=== PATIENT | female | born 1985 ===

== ENCOUNTER 2023-01-13 11:15 | Day surgery (SDC) | payer OTHER, SELFPAY ==
[2023-01-06 12:43] VITALS: BMI 28.0
[2023-01-13] VITALS (13 sets, daily range): BP systolic 93–111; BP diastolic 54–77; PULSE 63–115; RESP 11–18; TEMP 36.2–37.6; O2SAT 93–99; BMI 28.0; BMI 29.6
--- NOTE | 2023-01-13 | PATH_ITS ---
[facility] Accession Number: [id number] No. of containers..01 Tissue . 01 Material submitted: . uterus - UTERUS,BILATERAL FALLOPIAN TUBES . 01 Diagnosis: Uterus, Cervix, Left and Right Fallopian Tubes, Hysterectomy and Bilateral Salpingectomy: Cervix: No significant pathologic abnormalities. Endometrium: Disordered proliferative. Myometrium: Adenomyosis. Fallopian tubes: Benign paratubal cyst. [facility] 01/24/2023 2217 Local . 01 Electronically signed: . Telma Wright MD, Pathologist NPI- [id number] . 01 Gross description: . The specimen is received in formalin labeled with the patient's name, , and uterus, bilateral fallopian tubes consist of a uterus with attached cervix and detached bilateral fallopian tubes. The 116-gram uterus with attached cervix measures 9.3 cm from fundus to ectocervix, 6.8 cm from cornu to cornu, and 3.9 cm from anterior to posterior. The serosal surface is pink to violaceous, smooth, and unremarkable. The pale pink, smooth and centrally granular ectocervix measures 3.6 x 3.5 cm with a central slit-like os measuring 1.3 cm in length . The uterus is bivalved to reveal an endocervical canal with a herringbone pattern measuring 4.7 cm in length and 0.8 cm in diameter. The red-ortiz lush triangular endometrial cavity measures 3.0 cm in length and 2.0 cm from cornu to cornu. The uterus is serially sectioned to reveal a red-ortiz thickened endometrium measuring 0.2 cm and a pale pink trabecular myometrium measuring up to 2.2 cm in thickness. Definitive polyps or lesions are not seen. No leiomyomatous nodules are identified. The first violaceous fimbriated fallopian tube measures 3.5 cm in length and 0.9 cm in diameter. No paratubal cysts are seen. The second, previously disrupted, violaceous fimbriated tube upon reapproximation measures 3.9 cm in length and 0.7 cm in diameter. No paratubal cysts are seen. Air Motor Repairer sections are submitted as follows: A1: Anterior endocervical canal. A2: Posterior endocervical canal. A3 : Anterior endomyometrium. A4: Posterior endomyometrium. A5: First fallopian tube, fimbriae entirely submitted. A6-A7: Second fallopian tube, fimbriae entirely submitted. ([id number]) /MRV 01/14/2023 1839 Local . 01 Pathologist provided ICD-10: N81.4 . 01 CPT . 669250 Specimen Comment: A courtesy copy of this report has been sent to [phone] Performed at: 01 [facility] [address] [place] [address], [place], [place] [id number] MD Manpreet Jackman MD Phone: [phone]
--- NOTE | 2023-01-13 11:22 | P.HP_ITS ---
History of Present Illness History of Present Illness Date Patient Seen: 01/13/23 Time Patient Seen: 11:22 Chief complaint: Hemorrhoid Banding w/Lore & Pelvic w/Jamie *OPB Narrative: 37-year-old woman with cysto and rectocele here for hemorrhoidal banding and hy sterectomy with Dr. Ayala today. No interval changes in health related to hemorrhoid disease. Please refer to the H and P from November 2022 for further detail. [facility] Medical History Acne (~2020) Allergies (~2021) Chicken pox (~1991) Chronic back pain (~2005) Fracture (~2009) Hemorrhoid (~2013) History of urinary incontinence (~2021) Migraines (~2005) Wears contact lenses Surgical History Anesthesia History of breast augmentation (~11/2008) History of section (~02/2008) Social History household members: spouse and children Smoking Status: Never smoker alcohol intake: current Meds Home Medications and Allergies Home Medications Medication Instructions Recorded Confirmed Type cetirizine 10 mg tablet 10 mg PO DAILY allergies 12/17/22 12/17/22 History oxycodone 5 mg tablet 5 mg PO Q6H PRN pain #20 tabs 01/12/23 01/12/23 Rx Allergies Allergy/AdvReac Type Severity Reaction Status Date / Time No Known Drug Allergies Allergy Unverified 12/17/22 10:54 Exam Narrative Exam Narrative: General adult woman alert oriented no acute distress Extremities warm well perfused Assessment & Plan Assessment and plan (1) Hemorrhoids: Qualifiers: Hemorrhoid type: first degree Qualified Code(s): K64.0 - First degree hemorrhoids Status: Acute Assessment & Plan narrative: 37-year-old woman with symptomatic hemorrhoids she is here for hemorrhoidal banding under anesthesia with hysterectomy. Overview of the banding procedure was discussed with the patient at the bedside again. Risks including hemorrhage, recurrence, pain an anal stenosis were discussed. Questions have been answered she is in agreement with this plan. She provides her written and verbal consent to proceed.
[2023-01-13] MEDS: LACTATED RINGERS 1,000 ML 125 ML IV (11:55)
[2023-01-13] MEDS: ACETAMINOPHEN 325 MG TABLET 975 MG PO (12:49)
--- NOTE | 2023-01-13 12:51 | PM.PREOP ---
Pre-operative Note COVID-19 COVID-19 status: Not tested Criteria for continued procedure: Non-surgical alternatives not available or appropriate per current SOC Interval Note History & Physical reviewed/Exam performed by Physician: Yes Changes to H&P: No
[2023-01-13] MEDS: CEFAZOLIN 2 GM/100 ML PREMIX 100 ML IV (13:10)
--- NOTE | 2023-01-13 13:13 | P.OP_ITS ---
Operative Date/Time/Diagnoses Date of procedure: 01/13/23 Time of procedure: 13:13 Pre-op diagnosis: internal hemorrhoids Post-op diagnosis: same Procedure & Clinicians Procedure: hemorrhoidal banding x 2 Same procedure as scheduled: Yes Indications: symptomatic internal hemorrhoids not improving with conservative management Surgeon: Ze Torrez Anesthesia Type: General Operative Notes Findings: Grade 1 internal hemorrhoids, left lateral and right posterior Specimen(s): none sent Estimated Blood Loss (mL): 1 Procedure in detail: Patient was brought to the operating room placed supine on the table. Bilateral lower extremity compression devices were applied. General anesthesia was induced she was intubated with an endotracheal tube. Time-out was performed after she was placed into lithotomy position. The anoscope was placed into the anal canal examination demonstrates grade 1 internal hemorrhoids from the right posterior pedicle and the left lateral pedicle. The pedicles were individually elevated with suction and then doubly ligated at their base. Care of the patient was then turned over to Dr. Ayala of yard general car supervisor Complications: none
--- NOTE | 2023-01-13 13:48 | SUR.OPER ---
Lithotomy on padded OR bed. [place] Pad Positioner under torso. Head on pillow, arms padded and tucked at sides. Legs secured in padded yellow fins stirrups.
--- NOTE | 2023-01-13 13:51 | SUR.OPER ---
Lithotomy on padded OR bed. [place] Pad Positioner under torso. Head on pillow, arms padded and tucked at sides. Legs secured in padded yellow fins stirrups.
[2023-01-13] MEDS: BUPIVACAINE 0.5% W/ EPI (PF) 30 ML VIAL INJ (13:56)
--- NOTE | 2023-01-13 14:47 | SUR.OPER ---
THREE SETS OF HEMORRHOID BANDS APPLIED BY DR COOPER
[2023-01-13] MEDS: ROPIVACAINE 0.2% PF 2 MG/ML 10ML AMP 20 ML INJ (15:52)
[2023-01-13] MEDS: LACTATED RINGERS 1,000 ML 120 ML IV (15:57)
--- NOTE | 2023-01-13 16:14 | SUR.OPER ---
POSITIONING REQUESTED/APPROVED BY SURGEON.
--- NOTE | 2023-01-13 16:24 | P.OP_ITS ---
Operative Date/Time/Diagnoses Date of procedure: 01/13/23 Time of procedure: 13:45 Pre-op diagnosis: Menorrhagia Uterovaginal prolapse, incomplete Stress urinary incontinence Post-op diagnosis: same Procedure & Clinicians Procedure: Procedures Operation Date: 01/13/23 12:30 Actual Procedure Side Surgeon p Hemorrhoid Banding MD porsche Tolliver Laparoscopic Total Hysterectomy w. bilateral salpingectomy, laparoscopic uterosacral vault suspension Ajay Ayala MD p Poss. Anterior/Posterior repair MD porsche Zaragoza mid urethral sling, cystoscopy Ajay Ayala MD Surgeon: Ajay Ayala Hotel Room Attendant: Kira Chavez Anesthesia Type: General Operative Notes Findings: The uterus is normal in size and shape. Anterior cul-de-sac demonstrates consistent with prior section. There were no abnormalities of the in the posterior cul-de-sac. Uterosacral ligaments were attenuated somewhat on both size. Both ovaries and fallopian tubes also appeared to be normal. The appendix was not visualized but the upper abdomen was normal to laparoscopic visualization. Closure Type: primary Specimen(s): left tube, right tube and uterus Applied: catheter Estimated blood loss (mL): 125 Blood products transfused: none Procedure in detail: With the patient in modified dorsal lithotomy position preparations were made by prepping and draping the patient in usual manner for vaginal surgery and insertion of Bain catheter. A pre-surgical time-out was then taken in accordance with [facility] policy. A bivalve speculum was then placed in the vagina and the cervix visualized. The anterior lip of the cervix was then grasped with a single-tooth tenaculum. The uterus was sounded to 8 cm, the endocervical canal dilated slightly, and a VCare uterine manipulator with a large colpotomy cup was placed. The umbilicus was then infiltrated with 0.5% Marcaine with epinephrine. A 1 cm umbilical incision was made transversely and a Veress needle was used to insufflate the abdominal cavity with carbon dioxide. Once the abdomen was appropriately insufflated, a 5 mm trocar and sleeve were then placed through the umbilical incision. The scope was placed through the trocar and the initial assessment of the intra-abdominal contents carried out. A 2nd and 3rd 5 mm port was then placed 1st in the right mid quadrant from then the left mid quadrant by infiltration of the skin and subcutaneous tissues, a 1 cm transverse incision and insertion of the 5 mm bladeless port. Using a 3 puncture technique, the abdomen and pelvis were inspected laparoscopy and photographically documented. Uterus is mobilized with the VCare manipulator and attention turned to the left adnexa. The distal tube was then grasped and the fimbria varicose divided after coagulation with the PowerSeal device. The dissection was then carried out toward the cornua and the fallopian tube amputated. The tube was removed through a 5 mm port and dissection was then carried down using the PowerSeal device so as to divide the utero-ovarian ligament and the round ligament with blunt and sharp dissection of the broad down to the level of the uterine artery. The uterine artery was then skeletonized after development of a bladder flap, coagulated, and divided. Once hemostasis was assured on the left side attention was turned to the right and the tube, utero-ovarian ligament, round ligament, and broad ligament were dissected in a fashion exactly the same as it had been on the left. The right uterine artery was then visualized after skeletonization and coagulated and divided. The uterus was seen to britany after coagulation of both your arteries and the cup was identified through the vaginal muscularis at its insertion with the body of the cervix. Circumferential excision of the vaginal cup was accomplished without difficulty using monopolar current and the uterus mobilized. The uterus was then removed through the vagina and the vaginal cuff closed xiwv-ko-eirk with a series of 0 Vicryl ssagwa-hd-ekhav stitches. H emostasis was excellent, the abdomen was re-insufflated, and the pelvis inspected laparoscopically. A 4th 5 mm trocar and sleeve was then placed deep in the right lower quadrant. Port was used to place for laparoscopic sutures incorporating the anterior (pubo-cervical) fascia, the posterior (rectovaginal fascia) at the vaginal apex with the uterosacral ligaments on both sides. Attachment of the uterosacral ligaments on both sides with 2 stitches was performed with elevation of the vaginal cuff using an EEA Sizer to elevate the cuff had provided backstop for suture placement. The pelvis was inspected for any abnormality or bleeding, and the ureters were each seen to be peristalsing freely. With complete hemostasis assured, the pneumoperitoneum was vented and the ports removed. All of the 5 mm ports were then closed with 4-0 Monocryl on the skin using inverted interrupted sutures. Skin glue was placed and after the glue was dried, an appropriate dressing was applied. The case was then terminated, the patient awakened, and then transferred to PACU after having tolerated the procedure well. Attention was then turned to performance of the mid urethral sling. A weighted speculum was inserted in the vagina and the anterior vaginal wall inspected.? A Bain catheter was inserted previously in the bladder and the mid urethra was identified by palpation of the Bain bulb.? Once the mid urethra had been identified, 2 Allis clamps were placed and the area of incision infiltrated with 0.25% Marcaine with epinephrine.? A 2 cm longitudinal incision of the vaginal mucosa overlying the mid urethra was then made and using Metzenbaum scissors the dissection was carried lateral on both sides so as to be able to safely introduce the retropubic tension-free vaginal tape.? The TVT needle was placed 1st on the right side followed by placement of a left up through the suprapubic skin.? The needle tips were brought out through the skin and remained in place while the Bain catheter was removed and cystoscopy performed with findings as noted above.? The TVT needles were then brought up through the suprapubic incisions and removed with suture scissors.? The mid urethral sling was then appropriately positioned under the mid urethra and the plastic sleeves removed from the TVT once it was in correct position.? The redundant portion TVT material was then excised at the skin line of the suprapubic incisions.? Correct positioning of the DVT was then confirmed and the vaginal incision closed with 3-0 chromic in a running locking stitch.? Pressure was maintained on the retropubic tissues for 5 minutes so as to reduce the risk subsequent bleeding or bruising.? The suprapubic incisions were then closed with skin glue and an appropriate dressing was applied.? Patient was then awakened from anesthesia and transferred to the PACU for a period of observation and recovery after having tolerated procedure well. Complications: none Post-operative Condition: stable Disposition: PACU Plan for aftercare: Routine postoperative care with follow-up planned for 2 weeks postop
[2023-01-13 18:24] LABS: Add Manual Diff / Slide Review NO; Basophils Absolute Auto 0 /uL (0-100); Basophils Percent Auto 0.1 % (0-2); Eosinophils Absolute Auto 0 /uL (0-450); Hematocrit 36.6 % (36-46); Hemoglobin 12.4 g/dL (12.0-16.0); Lymphocytes Absolute Auto 900 /uL (1100-4500); Lymphocytes Percent Auto 7.8 % (25-40); Mean Corpuscular HGB Conc 33.9 % (30-36); Mean Corpuscular Hemoglobin 29.7 PG (26-34); Mean Corpuscular Volume 87.8 fL (80-100); Monocytes Absolute Auto 100 /uL (0-900); Monocytes Percent Auto 0.7 % (3-14); Neutrophils Absolute Auto 10500 /uL (1500-7000); Neutrophils Percent Auto 91.4 % (50-75); Platelet Count 214 X10^3/uL (150-400); Red Blood Cell Count 4.17 X10^6/uL (4.0-5.2); Red Cell Distribution Width 13.5 % (11.6-14.8); White Blood Cell Count 11.5 X10^3/uL (4.5-11.0)
[2023-01-13] MEDS: LACTATED RINGERS 1,000 ML 100 ML IV (18:30)
[2023-01-13] MEDS: KETOROLAC 30 MG/ML VIAL IV ×2 (18:30→23:13)
[2023-01-13] MEDS: ONDANSETRON 4 MG/2 ML INJ IV (19:41)
[2023-01-13] MEDS: HYDROMORPHONE 2 MG INJ IV (19:41)
[2023-01-13] MEDS: ACETAMINOPHEN 325 MG TABLET 650 MG PO (20:56)
[2023-01-13] MEDS: DOCUSATE 100 MG CAPSULE 200 MG PO (20:56)
[2023-01-13] MEDS: PROMETHAZINE 25 MG SUPP PR (22:39)
[2023-01-14 00:31] VITALS: BP 94/58; PULSE 76; RESP 18; TEMP 37.1; O2SAT 98
[2023-01-14] MEDS: HYDROMORPHONE 2 MG INJ IV (01:55)
[2023-01-14] MEDS: LACTATED RINGERS 1,000 ML 100 ML IV (04:04)
[2023-01-14 04:18] VITALS: BP 91/55; PULSE 66; RESP 18; TEMP 36.4; O2SAT 97
[2023-01-14] MEDS: KETOROLAC 30 MG/ML VIAL IV (05:39)
[2023-01-14] MEDS: DOCUSATE 100 MG CAPSULE 200 MG PO (09:17)
[2023-01-14] MEDS: LORATADINE 10 MG TABLET PO (09:18)
[2023-01-14 10:11] VITALS: BP 102/71; PULSE 65; RESP 18; TEMP 36.9; O2SAT 99
[2023-01-14] MEDS: HYDROCODONE/ACET 5/325 TABLET 2 TAB PO (11:49)
--- NOTE | 2023-01-14 13:07 | PC.NURSE ---
Addendum entered by Venessa Lopez R.N. 01/14/23 13:34: HL discontinued intact, Home instructions reviewed, Pt escorted by staff via W/C to waiting vehicle. Discharged in stable post op status Original Note: Pt resting at interval this morning Med w/ [place] for discomfort w/good relief lap sites are CDI in to see, D/C orders received. Pt voided 200 pink tinged urine w/80cc PVR Call light w/in reach, pt calls appropriately for needs
--- NOTE | 2023-01-14 13:08 | CM.DANOTE ---
DCP: Chart review for case, met with patient at bedside, they agree to case management assessment. Completed DCP assessment based on information available. Patient is a 37 year old admitted for planned pelvic surgery. Supportive at bedside who will be truck driver salesperson home. PCP: Gracie Hardin Payer: Sergio Samano DME: None DCP: Home with supportive . Lyubov Basilio RN, CM Discharge Planning/Care Management CM Discharge Assessment Start: 01/14/23 13:06 Freq: Status: Active Protocol: Document 01/14/23 13:06 BQ (Rec: 01/14/23 13:07 BQ [id number]) Discharge Planning Assessment Assigned Cylinder Block Mechanic Lyubov Basilio RN, CM Advance Directives? No Advance Directives on File No History Provided By Patient,Medical Record Has Patient been admitted in last 30 No days? Prior Living Arrangements House Household Members spouse,children Type of transporation used prior to Drives own vehicle admit Independent with ADL's Yes Is patient alert and oriented? Yes Caregiver for Another Yes: Children Barriers to Discharge No Discharge Plan Home Referrals Initiated None needed Whiteboard Updated in Patient Room with Yes name and ext. # of Cylinder Block Mechanic Review Status In Process Next Review Type Continued Stay Review Pre-Anesthesia Assessment Start: 01/06/23 12:43 Freq: Status: Complete Protocol: Document 01/06/23 12:43 CAB (Rec: 01/06/23 12:52 CAB [id number]) Pre-Anesthesia Assessment Patient Information Reviewed Via Chart Review Primary Care Provider Gracie Hardin Seen Specialist in Last 12 Months Yes Specialist Seen General surgeon,Traffic Manager Primary Language Chinese Track Laying Supervisor Required No Height 149.86 cm Weight 63.049 kg Body Mass Index (BMI) 28.0 Hearing Ability Normal Visual Assist Contacts,Glasses Dentition Type Teeth, Natural Present Barriers to Learning None alcohol intake current alcohol intake frequency holidays/special occasions only Smoking Status Never smoker Substance Use Type does not use History of Falling (Recent or History of No ) Patient is completely paralyzed or No completely immobile Mental Status Oriented to own ability Is patient on oxygen? No Hx Sleep Apnea No Currently Taking a Beta Jean No Anti-Coagulant Therapy No Has a Clothing Presser No Cardiac Testing No Hx Pacemaker/ICD No Pacemaker Rep Required? No Cardiac Clearance Received Not Applicable Urinary Catheter Present No Hx Urinary Self Catheterization No Diabetes No Patient No Marital Status Lives With spouse,children Patient Discharge Plan Description Return Home
--- NOTE | 2023-01-14 13:11 | P.DS_ITS ---
History of Present Illness History of Present Illness Date Patient Seen: 01/14/23 Time Patient Seen: 08:55 Chief complaint: Hemorrhoid Banding w/Lore & Pelvic w/Jamie *OPB Discharge Providers Provider Date of admission: 01/13/2023 Discharge Date: 01/14/23 Primary care physician: Gracie Hardin MD Discharge provider: Ajay Ayala MD Summary Hospital Course Discharge Diagnosis: Menorrhagia Uterovaginal prolapse, incomplete Stress urinary incontinence Hospital Course: Pat was admitted 01/13/2023 and underwent an uneventful total laparoscopic hysterectomy, bilateral salpingectomy with uterosacral ligament suspension of the vaginal vault , and mid-urethral sling placement with cystoscopy. Details of the procedure well summarized on my operative note that date. Following her surgery, the patient has done extremely well with prompt return of bowel function and normal voiding function after removal of her catheter. Postvoid residuals after removal of the catheter were within normal ranges. Following her surgery the patient has also been able to ambulate independently, she is tolerating regular diet, and her pain is well relieved with oral pain medications. She will be discharged at this time to home in an afebrile normotensive condition after counseling regarding precautionary symptoms, limitations of activity, and plans for follow-up which will be in 2 weeks. Medications at discharge will include oxycodone 5 mg p.o. every 6 hours as needed for pain #20, and Cipro 500 mg p.o. b.i.d. x5 days for UTI prophylaxis following catheterization. Status at Discharge Cognitive/behavioral status at discharge: oriented Functional status at discharge: independent ambulation Overall status at discharge: patient is progressing back to baseline Time Spent with Patient Time spent: Less than 30 minutes Exam Vital Signs (past 8 hours): - 01/14/23 10:11 Temperature 98.4 F Pulse Rate 65 Respiratory Rate 18 Blood Pressure 102/71 Pulse Oximetry 99 Oxygen Flow Rate 0 Oxygen Delivery Method Room Air Oxygen Flow Rate 0 Const General: cooperative and comfortable Nutritional Appearance: average body habitus Orientation: alert and oriented x3 HENMT Head: normal to inspection, atraumatic and abrasion Ears: hearing grossly normal bilaterally Face and sinus: face symmetric Eyes General: appearance normal, both eyes and all related structures Conjunctivae: conjunctivae normal Sclera: sclerae normal EOM: EOM intact bilaterally Neck Neck: normal visual inspection Resp Effort & Inspection: normal respiratory effort and able to speak in complete sentences Auscultation: clear to auscultation bilaterally Cardio Rate: regular rate Rhythm: regular rhythm Heart Sounds: S1 normal, S2 normal and no murmurs GI Inspection: normal to inspection and incision (Surgical dressings clean and dry) Palpation: soft, no hepatosplenomegaly and tender (Mild, diffuse postsurgical tenderness) External Female Exam: other (No significant bleeding noted) Extrem General: no calf tenderness Psych Appearance: grossly normal Mental Status: mental status grossly normal Speech and Movement: speech and movement normal Mood: congruent mood Affect: normal affect Attitude: cooperative Thought Process: normal Thought Content: normal Judgment: judgment good Objective Labs 01/13/23 18:10 Labs: Laboratory Results - last 24 hr 01/13/23 18:10 WBC 11.5 H RBC 4.17 Hgb 12.4 Hct 36.6 MCV 87.8 MCH 29.7 MCHC 33.9 RDW 13.5 Plt Count 214 Neut % (Auto) 91.4 H Lymph % (Auto) 7.8 L [place] % (Auto) 0.7 L Eos % (Auto) 0.0 L Baso % (Auto) 0.1 Neut # (Auto) 02667 H Lymph # (Auto) 900 L [place] # (Auto) 100 Eos # (Auto) 0 Baso # (Auto) 0 PFSH Medical History Acne (~2020) Allergies (~2021) Chicken pox (~1991) Chronic back pain (~2005) Fracture (~2009) Hemorrhoid (~2013) History of urinary incontinence (~2021) Migraines (~2005) Wears contact lenses Surgical History Anesthesia History of breast augmentation (~11/2008) History of section (~02/2008) Social History household members: spouse and children Smoking Status: Never smoker alcohol intake: current Discharge Plan Discharge Plan Patient Disposition: Home Provider Discharge Comment: Please review the written instructions you received when you were discharged from the hospital. Your follow-up appointment will be scheduled for 2 weeks after your surgery and I look forward to seeing you then. If however in the meanwhile you have any issues, concerns, questions, please co ntact me either through the office phone at [phone], or via the patient portal. Discharge orders & Medications Discharge Orders: Discharge (Order); Ordered 01/14/23 Ordered By: Ajay Ayala Prescriptions: New hydrocodone-acetaminophen 5-325 mg Tablet 1 tab PO Q6H PRN (Reason: Pain, Severe (7-10)) Qty: 20 0RF ciprofloxacin HCl [Cipro] 500 mg tablet 500 mg PO BID 5 Days Qty: 10 0RF Continued cetirizine 10 mg tablet 10 mg PO DAILY Follow up/Referrals: Gracie Hardin MD [Primary Care Provider] - Ze Torrez MD [Physician] - 2 Weeks Ajay Ayala MD [Physician] - Diet/Activity/Treatments Diet: Diet as Tolerated Activity: As tolerated Other treatments: Ouuo-mso-kqrhtch Tylenol and/or ibuprofen may be used for additional pain relief. Chrh-gtl-msroapa stool softeners and/or MiraLax may be used as needed constipation. Skin/Wound/Dressing Care Report to your healthcare provider any signs of infection, such as:: chills, fever, increased pain, unusual drainage and unusual redness Dressing: Dressing should be removed on morning of 01/15/2023 Visit Report/Discharge Packet Instructions: DI for Hysterectomy, DI for Hemorrhoid Banding, DI for Laparoscopy Discharge Data Primary Care Provider: Gracie Hardin Attending Provider: Ze Torrez Quality VTE Deep Vein Thrombosis/Pulmonary Embolism Present on Admission: No
== END 2023-01-14 13:30 | disposition home or self-care (01) ==
LOC: OR 11:16 → AC 11:16
PROVIDERS: Obstetrics & Gynecology; PCP Student in an Organized Health Care Education/Training Program; Referring Provider Surgery; Visit Provider Surgery
PROC: 0DJD8ZZ Inspection of Lower Intestinal Tract, Via Natural or Artificial Opening Endoscopic (ICD-10-PCS; CPT 45378; principal; 2023-01-13 12:30)
PROC: 0UT94ZZ Resection of Uterus, Percutaneous Endoscopic Approach (ICD-10-PCS; CPT 57425; 2023-01-13 12:30)
PROC: (CPT 57425; 2023-01-13 12:30)
PROC: 0TSD0ZZ Reposition Urethra, Open Approach (ICD-10-PCS; CPT 57425; 2023-01-13 12:30)
DX: N81.2 Incomplete uterovaginal prolapse (principal); N39.3 Stress incontinence (female) (male); K64.0 First degree hemorrhoids; N92.0 Excessive and frequent menstruation with regular cycle; N81.6 Rectocele; N83.8 Other noninflammatory disorders of ovary, fallopian tube and broad ligament; N80.03 Adenomyosis of the uterus
CPT/HCPCS: 57425; 57288; 58571; 46221; 36415; 85025; C1771; J0330; J0690; J1100; J1170; J1885; J2405; J2704; J2795; J3010; J3490

== ENCOUNTER → 2023-05-06 08:31 | Outpatient (CLI) | payer OTHER, SELFPAY ==
[2023-01-13 17:07] VITALS: BMI 29.6
[2023-05-07 16:32] LABS: Candida species Positive (Negative); Gardnerella vaginalis Negative (Negative); Trichomoas vaginalis Negative (Negative)
== END ==
PROVIDERS: PCP Student in an Organized Health Care Education/Training Program; Visit Provider Student in an Organized Health Care Education/Training Program
DX: N94.9 Unspecified condition associated with female genital organs and menstrual cycle (principal); N89.8 Other specified noninflammatory disorders of vagina
CPT/HCPCS: 87077; 87086; 87186; 87480; 87510; 87660